=== PATIENT | male | born 1995 | race Two or more races ===

== ENCOUNTER 2023-08-02 03:48 | Inpatient (IN) | payer MEDICAID, OTHER ==
[~2023-08-02] VITALS: Ht 182.9 cm; Wt 83.0 kg
[2023-08-02] MEDS: SODIUM CHLORIDE 0.9% 1,000 ML IV ONE ×2 (04:29→10:41)
[2023-08-02] MEDS: LORazepam 0.5 MG TAB PO ONE (04:30)
[2023-08-02 04:33] LABS: Hematocrit 46.5 % (41.0-53.0); Hemoglobin 15.8 g/dL (13.5-17.5); Mean Corpuscular Hgb Conc. 33.9 g/dL (32.0-36.0); Mean Corpuscular Volume 100.3 fL (80.0-100.0); Red Blood Cells 4.64 10^6/uL (4.5-5.90); Red Cell Distribution Width 15.2 % (11.8-14.3); White Blood Cell 8.8 10^3/uL (4.4-10.8)
[2023-08-02 04:40] LABS: Basophils % (manual) 0 (0.0-2.0); Blast Cells 0; Eosinophils % (manual) 0 (0-7); Metamyelocytes % 0; Myelocytes % 0; Promyelocytes % 0
[2023-08-02 04:48] LABS: Alanine Aminotransferase 29 U/L (7-40); Alkaline Phosphatase 70 U/L (46-116); Anion Gap 13 (5-15); Aspartate Aminotransferase 30 U/L (13-40); BUN/Creatinine Ratio 10.6 (10.0-20.0); Blood Urea Nitrogen 9 mg/dL (9-23); Calcium 9.9 mg/dL (8.7-10.4); Carbon Dioxide 21 mmol/L (20-30); Chloride 108 mmol/L (98-107); Glucose 121 mg/dL (74-106); Potassium 3.4 mmol/L (3.5-5.1); Sodium 142 mmol/L (136-145)
[2023-08-02 04:49] LABS: Bilirubin, Total 0.3 mg/dL (0.2-1.0)
[2023-08-02 05:59] LABS: Amphetamine Screen, Urine Neg (NEGATIVE); Barbiturate Scree,Urine Neg (NEGATIVE); Benzodiazephine Screen, Urine Neg (NEGATIVE); Cannabinoid Screen, Urine Pos (NEGATIVE); Cocaine Screen, Urine Neg (NEGATIVE); Opiate Scree,Urine Neg (NEGATIVE); Phencyclidine Screen, Urine Neg (NEGATIVE)
[2023-08-02 06:07] LABS: Urine Bacteria NONE SEEN /hpf (None Seen); Urine Blood Negative /uL (Negative); Urine Clarity Clear (Clear); Urine Color Yellow (Yellow); Urine Protein, UAD Negative (Negative); Urine Specific Gravity 1.018 (1.001-1.035); Urine Urobilinogen Normal (Negative); Urine WBC 1 /hpf (0 - 3)
[2023-08-02] MEDS: ENOXAPARIN SOD 80 MG/0.8ML SYRINGE SC ONE (07:11)
[2023-08-02 09:12] LABS: Band Neutrophils % (manual) 1; Lymphocytes % (manual) 52 (10.0-50.0); Monocytes % (manual) 6 (0-12); Reactive Lymphocytes 9
[2023-08-02 09:13] LABS: Anisocytosis Slight; Macrocytosis Slight; Platelet Estimate Adequate
[2023-08-02] MEDS: POTASSIUM EFFERVESENT TAB 25 MEQ PO ONE ×2 (09:35→11:11)
[2023-08-02 10:54] VITALS: PULSE 104; RESP 16; O2SAT 99
[2023-08-02] MEDS: ENOXAPARIN SOD 100 MG/1 ML SYRINGE SC SCH (11:11)
[2023-08-02] MEDS: SODIUM CHLORIDE 0.9% 1,000 ML IV SCH (11:12)
[2023-08-02] MEDS: ASPirin 81 mg TAB PO SCH (11:12)
[2023-08-02 11:13] LABS: Triglycerides 189 mg/dL (< 150)
[2023-08-02] MEDS: ASPirin 325 MG TAB PO ONE (11:13)
[2023-08-02 11:14] LABS: LDL Cholesterol 90 mg/dL (< 100)
[2023-08-02 11:15] LABS: Cholesterol 171 mg/dL (< 200); HDL Cholesterol 57 mg/dL (40-59)
[2023-08-02] MEDS: NITROGLYCERIN 0.4 MG SL TAB SL PRN (15:40)
[2023-08-02] MEDS: MORPHINE SULFATE INJ 2 MG/ml SYRG IV PRN (15:50)
[2023-08-02] MEDS: MAGNESIUM SULFATE 1GM/100ML 100 ML IV ONE (20:36)
[2023-08-02] MEDS: hydrALAZINE HCL 20 MG/ML VL IV PRN (20:57)
[2023-08-02] MEDS ORDERED: ATORVASTATIN 20 MG TAB PO SCH (22:00)
[2023-08-03] MEDS: ACETAMINOPHEN 325 MG TAB PO PRN (02:08)
[2023-08-03] MEDS: ATORVASTATIN 20 MG TAB PO SCH (03:34)
[2023-08-03] MEDS: MAGNESIUM SULFATE 1GM/100ML 100 ML IV ONE (03:41)
[2023-08-03 06:17] LABS: Basophils # (auto) 0 10 ^3/uL (0-0.2); Basophils % (auto) 0.4 % (0.0-2.0); Eosinophils # (auto) 0 10 ^3/uL (0-0.8); Eosinophils % (auto) 0.2 % (0.0-7.0); Hematocrit 43.5 % (41.0-53.0); Hemoglobin 14.6 g/dL (13.5-17.5); Lymphocytes # (auto) 2.5 10 ^3/uL (0.4-5.4); Lymphocytes % (auto) 30.4 % (10.0-50.0); Mean Corpuscular Hemoglobin 33.7 pg (28.0-32.0); Mean Corpuscular Hgb Conc. 33.7 g/dL (32.0-36.0); Mean Corpuscular Volume 100.1 fL (80.0-100.0); Monocytes # (auto) 0.9 10 ^3/uL (0-1.3); Monocytes % (auto) 10.6 % (0.0-12.0); Neutrophils # (auto) 4.7 10 ^3/uL (1.6-8.6); Neutrophils % (auto) 58.4 % (37.0-80.0); Red Blood Cells 4.34 10^6/uL (4.5-5.90); Red Cell Distribution Width 15.5 % (11.8-14.3); White Blood Cell 8.1 10^3/uL (4.4-10.8)
[2023-08-03 06:33] LABS: Alanine Aminotransferase 27 U/L (7-40); Albumin 5.1 g/dL (3.2-4.8); Alkaline Phosphatase 68 U/L (46-116); Anion Gap 10 (5-15); Aspartate Aminotransferase 33 U/L (13-40); BUN/Creatinine Ratio 14.7 (10.0-20.0); Blood Urea Nitrogen 10 mg/dL (9-23); Calcium 9.8 mg/dL (8.7-10.4); Carbon Dioxide 24 mmol/L (20-30); Chloride 105 mmol/L (98-107); Glucose 87 mg/dL (74-106); Sodium 139 mmol/L (136-145)
[2023-08-03 06:34] LABS: Bilirubin, Total 0.5 mg/dL (0.2-1.0)
[2023-08-03 09:48] VITALS: PULSE 86; RESP 16; O2SAT 98
[2023-08-03] MEDS: SODIUM CHLORIDE 0.9% 1,000 ML IV SCH (10:06)
[2023-08-03] MEDS: LISINOPRIL 10 MG TAB PO SCH (10:31)
[2023-08-03] MEDS: IOHEXOL 350 MG/ML 100ML IJ ONE (19:26)
[2023-08-03] MEDS: IODIXANOL 320MG/ML 100ML BTL IV ONE (19:26)
[2023-08-03] MEDS: VERAPAMIL 2.5MG/ML INJ 2ML VIAL IV ONE (19:27)
[2023-08-03] MEDS: HEPARIN SODIUM (PORCINE) 5000 UNITS/ML 1ML VIAL ONE (19:27)
[2023-08-03] MEDS: LIDOCAINE 2%HCL (LOCAL ANESTH.) INJ 20ML MDV ONE (19:27)
[2023-08-03] MEDS: fentaNYL CITRATE 100 MCG/2 ML VL ONE (19:28)
[2023-08-03] MEDS: MIDAZOLAM HCL 2MG/2ML 2ml VIAL (1mg/ml) ONE (19:28)
[2023-08-03 20:00] VITALS: PULSE 69; RESP 16; O2SAT 96
[2023-08-03 22:29] VITALS: BP 146/95; PULSE 66; RESP 18; TEMP 98.3; O2SAT 98
[2023-08-04] VITALS (8 sets, daily range): BP systolic 130–149; BP diastolic 80–98; PULSE 45–80; RESP 16–18; TEMP 97.9–99.1; O2SAT 95–99
[2023-08-04] MEDS: TEMAZEPAM 15 MG CAP PO ONE ×2 (00:19→23:14)
[2023-08-04 07:07] LABS: INR 1.12 (0.9-1.15); Partial Thromboplastin Time 34.3 SEC (24.5-34.5); Prothrombin Time 11.7 sec (9.3-11.8)
[2023-08-05 05:00] VITALS: BP 148/91; PULSE 64; RESP 18; TEMP 98.7; O2SAT 100
[2023-08-05 08:00] VITALS: PULSE 63
[2023-08-05 08:41] VITALS: BP 141/91; PULSE 90; RESP 18; TEMP 98.5; O2SAT 98
[2023-08-05 12:45] VITALS: BP 127/95; PULSE 57; RESP 16; TEMP 99; O2SAT 99
== END 2023-08-05 14:30 | disposition home or self-care (01) | DRG 207 ==
LOC: ER 03:48 → TELE 09:46 → TELE-CENTR 08-03 22:17
PROVIDERS: ADMIT Nurse Practitioner Family; ATTEND Internal Medicine
DX: R00.2 Palpitations (principal); I21.A1 Myocardial infarction type 2; E87.6 Hypokalemia; R00.0 Tachycardia, unspecified; I10 Essential (primary) hypertension; E83.42 Hypomagnesemia; E78.1 Pure hyperglyceridemia; F12.929 Cannabis use, unspecified with intoxication, unspecified; F41.9 Anxiety disorder, unspecified
CPT/HCPCS: 36415; 71046; 80053; 80061; 80307; 81001; 83735; 84443; 84484; 85007; 85025; 85027; 85610; 85730; 93005; 93306; 96360; 96372; 99291; G0378; J2250; Q9967

== ENCOUNTER 2025-04-23 14:50 | Emergency (ER) | payer MEDICAID ==
[~2025-04-23] VITALS: Ht 172.7 cm; Wt 74.3 kg
[2025-04-23 14:53] VITALS: BP 140/95; PULSE 109; RESP 16; TEMP 97.6; O2SAT 98
--- NOTE | 2025-04-23 15:39 | ED.PDOC ---
SOB-HPI HPI Comments 30-year-old male that presents to the ED for chief complaint of flu-like s ymptoms. Patient not having sore throat for the past three four days with the associated dizziness. Patient has been having increased pain while attempting to talk with a noted sore throat The patient states he was then urgent care and states nothing was done for him and he came to the ED for further evaluation. Patient in the ED otherwise denies any recent sick contacts. Patient in the ED otherwise stable vitals. Chief Complaint: Flu like Time Seen by MD: 15:09 Reviewed notes: Medications, Allergies Information Source: Patient Mode of Arrival: Ambulatory Severity: Moderate Past Medical History Past Medical History (Other): Bipolar disorder Surgical History: Denies all surgeries Family History Family History: Unknown Social History Smoker: Non-Smoker Alcohol: Denies ETOH Use Drugs: Denies Drug Use Lives In: Home Constitutional: denies: chills, diaphoresis, fatigue, fever, malaise, sweats, weakness, others EENTM: reports: throat pain; denies: blurred vision, double vision, ear bleeding, ear discharge, ear drainage, ear pain, ear ringing, eye pain, eye redness, hearing loss, mouth pain, mouth swelling, nasal discharge, nose blee ding, nose congestion, nose pain, photophobia, tearing, throat swelling, voice changes, others Respiratory: reports: cough; denies: hemoptysis, orthopnea, SOB at rest, shortness of breath, SOB with excertion, stridor, wheezing, others Cardiovascular: denies: chest pain, dizzy spells, diaphoresis, Dyspnea on exertion, edema, irregular heart beat, left arm pain, lightheadedness, palpitations, PND, syncope, others Gastrointestinal: denies: abdomen distended, abdominal pain, blood streaked bowels, constipated, diarrhea, dysphagia, difficulty swallowing, hematemesis, melena, nausea, poor appetite, poor fluid intake, rectal bleeding, rectal pain, vomiting, others Genitourinary: denies: burning, dysuria, flank pain, frequency, hematuria, incontinence, penile discharge, penile sore, pain, testicle pain, testicle swelling, urgency, others Neurological: denies: dizziness, fainting, headache, left sided numbness, left sided weakness, numbness, paresthesia, pre-existing deficit, right sided numbness, right sided weakness, seizure, speech problems, tingling, tremors, weakness, others Musculoskeletal: denies: back pain, gout, joint pain, joint swelling, muscle pain, muscle stiffness, neck pain, others Integumetry: denies: bruises, change in color, change in hair/nails, dryness, laceration, lesions, lumps, rash, wounds, others Allergic/Immunocompromised: denies: Difficulty Healing, Frequent Infections, Hives, Itching, others Hematologic/Lymphatic: denies: anemia, blood clots, easy bleeding, easy bruising, swollen glands, others Endocrine: denies: excessive hunger, excessive sweating, excessive thirst, excessive urination, flushing, intolerance to cold, intolerance to heat, unexplained weight gain, unexplained weight loss, others Psychiatric: denies: anxiety, bipolar disorder, depression, hopeless, panic disorder, schizophrenia, sleepless, suicidal, others All Other Systems: Reviewed and Negative Physical Exam General Appearance: No Apparent Distress, Normal HEENT: Normal ENT Inspection, Pharynx Normal, TMs Normal Neck: Full Range of Motion, Non-Tender, Normal, Normal Inspection Respiratory: Other (Bilateral tonsillar exudates but no noted airway obstru ction) Cardiovascular: No Edema, No JVD, No Murmur, No Gallop, Normal Peripheral Pulses, Regular Rate/Rhythm Breast Exam: Deferred Gastrointestinal: No Organomegaly, Non Tender, No Pulsatile Mass, Normal Bowel Sounds, Soft Genitalia: Deferred Pelvic: Deferred Rectal: Deferred Extremities: No calf tenderness, Normal capillary refill, Normal inspection, Normal range of motion, Non-tender, No pedal edema Musculoskeletal : Apperance: Normal Neurologic: Alert, 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 Was a procedure done?: No Differential Dx Differential Diagnosis: Bronchitis, Pneumonia, Respiratory Distress, Allergic Rhinitis, Pharyngitis, URI X-Ray, Labs, Meds, VS Vital Signs Date Time Temp Pulse Resp B/P (MAP) Pulse Ox O2 Delivery O2 Flow Rate FiO2 04/23/25 14:53 97.6 109 16 140/95 98 97.6 X-Ray, Labs, Meds, VS Comment Patient arrives alert and oriented, ABC's intact, afebrile, vital signs stable, saturating well in room air Additional MDM Review of External, Non-ED records: External records reviewed. Discussion with independent historian (EMS, family) history obtained from the patient/parents (if applicable) at bedside Chronic conditions affecting care: None Social determinants of health affecting care: None Consideration of admission (observation or admission): I considered escalation of care to admission for this patient, however given the reassuring workup, the patient is safe for outpatient management. Discussion with the Radiology: No Tests considered but not performed: Prescription medication considered but not given: 12 lead EKG interpretation: Time of 1ST Reevaluation: 15:40 Reevaluation 1ST: Unchanged Patient Education/Counseling: Diagnosis, Treatment Family Education/Counseling: No Family Present SEPSIS Sepsis Screen Date sepsis recognized/suspect: Apr 23, 2025 Time Sepsis recognized/suspect: 1452 Recent Procedure: No On Antibiotic Therapy: No Respiratory Rate >20: No Heart Rate >90: Yes Temp<36 C (96.8 F) or >38.3 C: No SBP <90 or MAP <65 mmHG: No New Acute Mental Status Change: No Is the patient on CPAP, BIPAP,: No Vital Signs Date Time Temp Pulse Resp B/P (MAP) Pulse Ox O2 Delivery O2 Flow Rate FiO2 04/23/25 14:53 97.6 109 16 140/95 98 97.6 Departure 1 Departure Time of Disposition: 15:39 Impression: Primary Impression: Tonsillar exudate Disposition: HOME / SELF CARE / HOMELESS Condition: Stable e-Prescriptions No Active Prescriptions or Reported Meds Critical Care Note Critical Care Time?: No Stability Stability form required: No Heart Score Heart Score: Heart Score Response (Comments) Value History N/A 0 EKG N/A 0 Age N/A 0 Risk Factors N/A 0 Troponin N/A 0 Total 0 I personally scribed for MERRY HART NP (DORON) on 04/23/25 at 15:39. Electronically submitted by Rimma Gibbs (IRIS). I personally scribed for MERRY HART NP (DORON) on 04/23/25 at 15:42. Electronically submitted by Rimma Gibbs (IRIS). MRERY HART NP Apr 23, 2025 15:39
[2025-04-23] MEDS ORDERED: ACET500T58 PO (15:41)
[2025-04-23] MEDS ORDERED: PRED20TA2 PO (15:41)
[2025-04-23] MEDS ORDERED: AZIT-43 PO (15:41)
== END 2025-04-23 16:22 | disposition home or self-care (01) ==
LOC: ER 14:50
DX: J03.90 Acute tonsillitis, unspecified (principal); Z79.899 Other long term (current) drug therapy